=== PATIENT | male | born 1985 | race American Indian/Alaskan Native ===

== ENCOUNTER 2018-05-18 08:34 | Emergency (ER) | payer SELFPAY ==
[2018-05-18 08:43] VITALS: BP 140/93
[2018-05-18] MEDS ORDERED: TRIMOX PO ONE (09:29)
[2018-05-18] MEDS ORDERED: MOTRIN PO ONE ×2 (09:29→09:42)
--- NOTE | 2018-05-18 09:33 | Emergency Department Report ---
ED ENT HPI - General Chief complaint: Earache Stated complaint: EAR PAIN Source: patient Mode of arrival: Ambulatory Limitations: No Limitations - History of Present Illness Initial comments: This is a 33-year-old -[place] male that presents with severe left ear pain started around 0130 this morning. Patient states he was riding in a truck from [place] and started feeling sharp pain to the left ear. Patient states they feel like something is moving inside of his ear. He reports pain is 10 out of 10 on pain scale, sharp throbbing sensation. Patient denies fever, discharge from ear, change in hearing, rhinorrhea, congestion, or chest pain. MD complaint: ear pain (left ear) -: This morning Time: 01:30 Location: L ear Severity: severe Severity scale (0 -10): 10 Quality: sharp, other (throbbing) Consistency: constant Improves with: none Worsens with: none - Related Data Previous Rx's Medication Instructions Recorded Last Taken Type Amoxicillin [Trimox CAP] 500 mg PO BID #20 capsule 05/18/18 Unknown Rx Ibuprofen [Motrin 800 MG tab] 800 mg PO Q8HR PRN #12 tablet 05/18/18 Unknown Rx Allergies Allergy/AdvReac Type Severity Reaction Status Date / Time No Known Allergies Allergy Verified 05/18/18 09:42 ED Dental HPI - General Chief complaint: Earache Stated complaint: EAR PAIN Source: patient Mode of arrival: Ambulatory Limitations: No Limitations - Related Data Previous Rx's Medication Instructions Recorded Last Taken Type Amoxicillin [Trimox CAP] 500 mg PO BID #20 capsule 05/18/18 Unknown Rx Ibuprofen [Motrin 800 MG tab] 800 mg PO Q8HR PRN #12 tablet 05/18/18 Unknown Rx Allergies Allergy/AdvReac Type Severity Reaction Status Date / Time No Known Allergies Allergy Verified 05/18/18 09:42 ED Review of Systems ROS: Stated complaint: EAR PAIN Other details as noted in HPI Constitutional: denies: chills, fever ENT: ear pain (left ear). 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 Absent: TM's normal bilaterally ( erythematous bulging TMs bilaterally) - Respiratory Respiratory exam: Present: normal lung sounds bilaterally. Absent: respiratory distress - Cardiovascular Cardiovascular Exam: Present: regular rate, normal rhythm. Absent: systolic murmur, diastolic murmur, rubs, gallop - GI/Abdominal GI/Abdominal exam: Present: soft, normal bowel sounds - Neurological Exam Neurological exam: Present: alert, oriented X3 - Psychiatric Psychiatric exam: Present: normal affect, normal mood - Skin Skin exam: Present: warm, dry, intact, normal color. Absent: rash ED Course Vital Signs 05/18/18 05/18/18 08:41 09:44 Temperature 98.3 F Pulse Rate 73 Respiratory 18 18 Rate Blood Pressure 140/93 O2 Sat by Pulse 98 Oximetry ED Medical Decision Making - Medical Decision Making Patient is stable and was examined by me. Vitals normal. Physical assessment susceptible of serous otitis media bilaterally. Start amoxicillin and ibuprofen for pain. Discussed plan with patient and he agreed with plan. Discharged home in stable condition. Follow up with PCP in 24-72 hours. Critical care attestation.: If time is entered above; I have spent that time in minutes in the direct care of this critically ill patient, excluding procedure time. ED Disposition Clinical Impression: Otalgia of left ear Otitis media Qualifiers: Otitis media type: suppurative Chronicity: acute Laterality: bilateral Recurrence: not specified as recurrent Spontaneous tympanic membrane rupture: without spontaneous rupture Qualified Code(s): H66.003 - Acute suppurative otitis media without spontaneous rupture of ear drum, bilateral Disposition: -01 TO HOME OR SELFCARE Is pt being admited?: No Does the pt Need Aspirin: No Condition: Stable Instructions: Otitis Media (ED), Earache (ED) Additional Instructions: Give Tylenol or ibuprofen for pain every 6-8 hours. Take antibiotics as prescribed to avoid recurrence of the ear infection. Avoid high altitudes, may worsen the pain during ear infection. If symptoms do not improve within 2 to 3 days, then follow up with Director Of Materials Management. Prescriptions: Amoxicillin [Trimox CAP] 500 mg PO BID #20 capsule Ibuprofen [Motrin 800 MG tab] 800 mg PO Q8HR PRN #12 tablet PRN Reason: Pain , Severe (7-10) Referrals: [facility] [Outside] - 3-5 Days [facility] [Outside] - 3-5 Days [facility] [Outside] - 3-5 Days Time of Disposition: 09:37 Print Language: CITIZEN [place]
== END 2018-05-18 10:00 | disposition home or self-care (01) ==
LOC: ED 08:34
DX: H66.003 Acute suppurative otitis media without spontaneous rupture of ear drum, bilateral (principal)
CPT/HCPCS: 99283